=== PATIENT | male | born 2000 | race Hispanic/Latino ===

== ENCOUNTER 2023-01-16 23:08 | Emergency (ER) | payer BC ==
--- NOTE | 2023-01-17 00:15 | ER ---
Nurse's Notes [facility] Name: Lonny Schwarz Age: 22 yrs Sex: Male : 2000 Arrival Date: 01/16/2023 Time: 23:08 Bed IW3 Private MD: Diagnosis: Other otitis externa, left ear Presentation: 01/16 23:55 Chief complaint: Patient states: I can't hear out of my left ear and it hurts. When I vc1 eat it hurts to chew. 23:55 Coronavirus screen: Vaccine status: Patient reports receiving the 2nd dose of the covid vc1 vaccine. [employer] Client denies travel out of the [place] in the last 14 days. At this time, the client does not indicate any symptoms associated with coronavirus-19. Ebola Screen: Patient negative for fever greater than or equal to 101.5 degrees Fahrenheit, and additional compatible Ebola Virus Disease symptoms Patient denies exposure to infectious person. Patient denies travel to an Ebola-affected area in the 21 days before illness onset. No symptoms or risks identified at this time. Initial Sepsis Screen: Does the patient meet any 2 criteria? No. Patient's initial sepsis screen is negative. Does the patient have a suspected source of infection? No. Patient's initial sepsis screen is negative. Risk Assessment: Do you want to hurt yourself or someone else? Patient reports no desire to harm self or others. Onset of symptoms was January 16, 2023. 23:55 Method Of Arrival: Ambulatory vc1 23:55 Acuity: EDEN 3 vc1 Triage Assessment: 01/17 00:08 General: Appears in no apparent distress. uncomfortable, Behavior is calm, cooperative, vc1 appropriate for age. Pain: Complains of pain in left ear Pain does not radiate. Pain currently is 10 out of 10 on a pain scale. EENT: Reports pain in left ear. Neuro: No deficits noted. Cardiovascular: No deficits noted. Respiratory: No deficits noted. GI: No deficits noted. : No deficits noted. Derm: No deficits noted. Musculoskeletal: No deficits noted. Historical: - Allergies: 00:07 No Known Allergies; vc1 - Home Meds: 00:07 None [Active]; vc1 - PMHx: 00:07 None; vc1 - PSHx: 00:07 None; vc1 - Immunization history:: Client reports receiving the 2nd dose of the Covid vaccine. - Social history:: Smoking status: Patient denies any tobacco usage or history of. Screenin:25 [facility] ED Fall Risk Assessment (Adult) History of falling in the last 3 months, vc1 including since admission No falls in past 3 months (0 pts) Confusion or Disorientation No (0 pts) Intoxicated or Sedated No (0 pts) Impaired Gait No (0 pts) Mobility Assist Device Used No (0 pt) Altered Elimination No (0 pt) Score/Fall Risk Level 0 - 2 = Low Risk Oriented to surroundings, Maintained a safe environment, Educated pt \T\ family on fall prevention, incl call for assistance when getting out of bed. Abuse screen: Denies threats or abuse. Nutritional screening: No deficits noted. Tuberculosis screening: No symptoms or risk factors identified. Vital Signs: 01/16 23:55 BP 136 / 76; Pulse 91; Resp 18; Temp 99.4; Pulse Ox 100% ; Weight 113.4 kg; Height 5 vc1 ft. 6 in. ; Pain 10/10; 23:55 Body Mass Index 40.35 (113.40 kg, 167.64 cm) vc1 23:55 Pain Scale: Adult vc1 ED Course: 23:11 Patient arrived in ED. ag3 23:11 Mp aWrd PA is PHCP. cp 23:11 Shin Caldera MD is Attending Physician. cp 01/17 00:07 Triage completed. vc1 00:07 Arm band placed on right wrist. vc1 00:13 Jadyn Beth MD is Referral Physician. cp 00:25 Provided Education on: finish antibiotics. vc1 00:25 No provider procedures requiring assistance completed. Patient did not have IV access vc1 during this emergency room visit. Administered Medications: No medications were administered Medication: 00:25 VIS not applicable for this client. vc1 Outcome: 00:14 Discharge ordered by . cp 00:25 Discharged to home ambulatory. vc1 00:25 Condition: good 00:25 Discharge instructions given to patient, Instructed on discharge instructions, follow up and referral plans. medication usage, Demonstrated understanding of instructions, follow-up care, medications, Prescriptions given X 3. 00:26 Patient left the ED. vc1 Signatures: Mp Ward PA PA cp Gomez, Alice ag3 Calcote, Vicki, RN RN vc1
--- NOTE | 2023-01-17 00:15 | EDPHYS ---
Physician Documentation [facility] Name: Lonny Schwarz Age: 22 yrs Sex: Male : 2000 Arrival Date: 01/16/2023 Time: 23:08 Bed IW3 Private MD: ED Physician Shin Caldera HPI: 01/16 23:40 This 22 yrs old Male presents to ER via Unassigned with complaints of Ear Pain.cp 23:40 The patient presents with a fullness, pain, that is acute, tenderness, swelling. The cp complaints affect the left ear. 23:40 Onset: The symptoms/episode began/occurred today. Associated signs and symptoms: cp Pertinent positives: decreased hearing, Pertinent negatives: cough, fever, rhinorrhea, sinus trouble, sore throat, vomiting. Historical: - Allergies: 01/17 00:07 No Known Allergies; vc1 - Home Meds: 00:07 None [Active]; vc1 - PMHx: 00:07 None; vc1 - PSHx: 00:07 None; vc1 - Immunization history:: Client reports receiving the 2nd dose of the Covid vaccine. - Social history:: Smoking status: Patient denies any tobacco usage or history of. ROS: 01/16 23:45 Constitutional: Negative for body aches, chills, fever, poor PO intake. cp 23:45 Eyes: Negative for injury, pain, redness, and discharge. cp 23:45 ENT: Positive for ear pain, Negative for drainage from ear(s), rhinorrhea, sinus congestion, sinus pain, sore throat, dental pain, difficulty swallowing, difficulty handling secretions. 23:45 Neck: Negative for pain with movement, pain at rest, stiffness. 23:45 Cardiovascular: Negative for chest pain, palpitations. 23:45 Respiratory: Negative for cough, shortness of breath, wheezing. 23:45 Neuro: Negative for altered mental status, headache, weakness. 23:45 All other systems are negative. Exam: 23:50 Constitutional: The patient appears in no acute distress, alert, awake, non-toxic, well cp developed, well nourished, obese. 23:50 Head/face: Noted is swelling, that is mild, of the behind left lower jaw, tenderness, cp that is mild. 23:50 Eyes: Periorbital structures: appear normal, Conjunctiva: normal, no exudate, no injection, Sclera: no appreciated abnormality, Lids and lashes: appear normal, bilaterally. 23:50 ENT: External ear(s): pain with movement, that is moderate, of the pinna of left ear and left ear canal, Ear canal(s): swelling, that is moderate, of the left canal, TM's: dullness, bilaterally, Nose: is normal, Mouth: Lips: moist, Oral mucosa: pink and intact, moist, Posterior pharynx: is normal, airway is patent, no erythema, no exudate, Voice: is normal. 23:50 Neck: ROM/movement: is normal, is supple, no range of motions limitations, no meningismus, no nuchal rigidity, Lymph nodes: lymphadenopathy is appreciated, left submandibular. 23:50 Chest/axilla: Inspection: normal. 23:50 Cardiovascular: Rate: normal, Rhythm: regular. 23:50 Respiratory: the patient does not display signs of respiratory distress, Respirations: normal, no use of accessory muscles, no retractions, labored breathing, is not present, Breath sounds: are clear throughout. 23:50 Skin: cellulitis, is not appreciated, no rash present. Vital Signs: 23:55 BP 136 / 76; Pulse 91; Resp 18; Temp 99.4; Pulse Ox 100% ; Weight 113.4 kg; Height 5 vc1 ft. 6 in. ; Pain 10/10; 23:55 Body Mass Index 40.35 (113.40 kg, 167.64 cm) vc1 23:55 Pain Scale: Adult vc1 MDM: 23:50 Patient medically screened. cp Administered Medications: No medications were administered Disposition: 01/17 02:32 Co-signature as Attending Physician, Shin Caldera MD I reviewed the patient's care rt provided by the Advanced Practice Provider and agree with the diagnosis and treatment plan. Disposition Summary: 01/17/23 00:14 Discharge Ordered Location: Home cp Problem: new cp Symptoms: have improved cp Condition: Stable cp Diagnosis - Other otitis externa, left ear cp Followup: cp - With: Jadyn Beth MD - When: 2 - 3 days - Reason: Recheck today's complaints Discharge Instructions: - Discharge Summary Sheet cp - Otitis Externa cp Forms: - Medication Reconciliation Form cp - Thank You Letter cp - Antibiotic Education cp - Prescription Opioid Use cp - Patient Portal Instructions cp Prescriptions: - Cipro 500 mg Oral Tablet - take 1 tablet by ORAL route every 12 hours for 10 days; 20 tablet; Refills: 0, cp Product Selection Permitted - Ibuprofen 800 mg Oral Tablet - take 1 tablet by ORAL route every 8 hours As needed take with food; 30 tablet; cp Refills: 0, Product Selection Permitted - Ciprodex 0.3-0.1 % Otic drops,suspension - instill 4 drops by OTIC route every 12 hours for 7 days , for ears ONLY; 1 cp unit; Refills: 0, Product Selection Permitted Signatures: Mp Ward PA PA cp Calcote, Vanessa, RN RN vc1 Shin Caldera MD MD rt
[2023-01-17] MEDS ORDERED: IBUPROFEN 400 MG TAB ONE (00:32)
[2023-01-17] MEDS ORDERED: CIPROFLOXACIN HCL 500 MG TAB ONE (00:32)
[2023-01-17 01:06] VITALS: BP 136/76; TEMP 99.4; O2SAT 100
== END 2023-01-17 00:26 | disposition home or self-care (01) ==
LOC: ER 23:08
DX: H60.8X2 Other otitis externa, left ear (principal)
CPT/HCPCS: 99283